=== PATIENT | female | born 2000 | race American Indian/Alaskan Native ===

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

== ENCOUNTER 2020-05-20 13:44 | Emergency (ER) | payer MEDICAID ==
[2020-05-20] MEDS ORDERED: dexAMETHasone 20 MG/5 ML VIAL IV ONE (16:51)
[2020-05-20] MEDS ORDERED: ALBUTEROL 2.5 MG/3 ML NEBU IH ONE ×2 (16:51→19:21)
[2020-05-20] MEDS ORDERED: MAGNESIUM SULFATE 2 GM/50 ML BAG IV ONE (16:51)
[2020-05-20] MEDS ORDERED: IPRATROPIUM 0.02% NEBU 2.5 ML IH ONE ×2 (16:51→19:21)
--- NOTE | 2020-05-20 16:56 | Emergency Department Report ---
ED Asthma HPI - General Chief Complaint: Dyspnea/Respdistress Stated Complaint: ALEX Time Seen by Provider: 05/20/20 16:51 Source: patient Mode of arrival: Wheelchair Limitations: No Limitations - History of Present Illness Initial Comments: Patient is a 19-year-old female presents emergency room complaints of an asthma exacerbation that began 3 days ago. She states that she ran out of her albuterol inhaler and has not been able to use it over the last week. She states that she has an occasional dry cough but denies any productive cough. She states that she has shortness of breath and wheezing and chest tightness. She denies any fever, vomiting, diarrhea, abdominal pain, vaginal bleeding. She denies any known sick contacts or recent travel. She is currently and under the care of an [employer]PECTING. No other past medical history except for asthma. No allergies to medications. - Related Data Previous Rx's Medication Instructions Recorded Last Taken Type ALBUTEROL Inhaler(NF) [VENTOLIN 2 puff IH TID #1 inha 03/24/18 Unknown Rx Inhaler(NF)] Nitrofurantoin [place]/M-Cryst 100 mg PO Q12HR #14 capsule 11/17/19 Unknown Rx [Macrobid CAP] metroNIDAZOLE [Flagyl] 500 mg PO Q12HR #14 tab 11/17/19 Unknown Rx Albuterol Sulfate [Proventil Hfa] 6.7 gm IH TID PRN #1 hfa.aer.ad 05/20/20 Unknown Rx Amoxicillin/Potassium Clav 1 each PO BID 10 Days #20 tablet 05/20/20 Unknown Rx [Augmentin 875-125 Tablet] Prednisone [predniSONE 10 mg 10 mg PO .TAPER #1 tab.ds.pk 05/20/20 Unknown Rx (6-Day Pack, 21 Tabs)] Allergies Allergy/AdvReac Type Severity Reaction Status Date / Time No Known Allergies Allergy Verified 03/24/18 13:35 ED Review of Systems ROS: Stated complaint: ALEX Other details as noted in HPI Comment: All other systems reviewed and negative ED Past Medical Hx - Past Medical History Previous Medical History?: Yes Hx Asthma: Yes Additional medical history: "learning disability" - Social History Smoking Status: Never Smoker Substance Use Type: None - Medications Home Medications: Home Medications Medication Instructions Recorded Confirmed Last Taken Type ALBUTEROL Inhaler(NF) [VENTOLIN 2 puff IH TID #1 inha 10/24/18 Unknown Rx Inhaler(NF)] Nitrofurantoin [place]/M-Cryst 100 mg PO Q12HR #14 capsule 11/17/19 Unknown Rx [Macrobid CAP] metroNIDAZOLE [Flagyl] 500 mg PO Q12HR #14 tab 11/17/19 Unknown Rx Albuterol Sulfate [Proventil Hfa] 6.7 gm IH TID PRN #1 hfa.aer.ad 05/20/20 Unknown Rx Amoxicillin/Potassium Clav 1 each PO BID 10 Days #20 tablet 05/20/20 Unknown Rx [Augmentin 875-125 Tablet] Prednisone [predniSONE 10 mg 10 mg PO .TAPER #1 tab.ds.pk 05/20/20 Unknown Rx (6-Day Pack, 21 Tabs)] ED Physical Exam - General Limitations: No Limitations General appearance: alert, in no apparent distress - Head Head exam: Present: atraumatic, normocephalic - Eye Eye exam: Present: normal appearance - ENT ENT exam: Present: mucous membranes moist - Respiratory Respiratory exam: Present: wheezes (bilaterally throughout), prolonged expiratory. Absent: respiratory distress, rales, rhonchi, stridor, chest wall tenderness, accessory muscle use, decreased breath sounds - Cardiovascular Cardiovascular Exam: Present: regular rate, normal rhythm, normal heart sounds. Absent: systolic murmur, diastolic murmur, rubs, gallop - Neurological Exam Neurological exam: Present: alert, oriented X3 - Psychiatric Psychiatric exam: Present: normal affect, normal mood - Skin Skin exam: Present: warm, dry, intact ED Course Vital Signs 05/20/20 05/20/20 05/20/20 13:52 19:33 20:43 Temperature 97.4 F L 97.8 F Pulse Rate 104 H 128 H Pulse Rate [ 135 H Bilateral Throughout] Respiratory 24 18 Rate Respiratory 20 Rate [Bilateral Throughout] Blood Pressure 105/73 Blood Pressure 108/64 [Left] O2 Sat by Pulse 96 95 Oximetry 05/20/20 23:03 Temperature Pulse Rate Pulse Rate [ Bilateral Throughout] Respiratory 16 Rate Respiratory Rate [Bilateral Throughout] Blood Pressure Blood Pressure [Left] O2 Sat by Pulse 98 Oximetry ED Medical Decision Making - Lab Data Result diagrams: 05/20/20 19:44 05/20/20 19:44 Lab Results 12/20/20 12/20/20 Range/Units 19:44 19:44 WBC 14.7 H (4.5-11.0) K/mm3 RBC 4.88 (3.65-5.03) M/mm3 Hgb 14.0 (10.1-14.3) gm/dl Hct 41.7 (30.3-42.9) % MCV 86 (79-97) fl MCH 29 (28-32) pg MCHC 34 (30-34) % RDW 15.5 H (13.2-15.2) % Plt Count 190 (140-440) K/mm3 Add Manual Diff Complete Total Counted 100 Seg Neutrophils % Biological Science Technician Seg Neuts % (Manual) 93.0 H (40.0-70.0) % Band Neutrophils % 1.0 % Lymphocytes % (Manual) 4.0 L (13.4-35.0) % Monocytes % (Manual) 1.0 (0.0-7.3) % Eosinophils % (Manual) 1.0 (0.0-4.3) % Nucleated RBC % Not Reportable Seg Neutrophils # Man 13.7 H (1.8-7.7) K/mm3 Band Neutrophils # 0.1 K/mm3 Lymphocytes # (Manual) 0.6 L (1.2-5.4) K/mm3 Abs React Lymphs (Man) 0.0 K/mm3 Monocytes # (Manual) 0.1 (0.0-0.8) K/mm3 Eosinophils # (Manual) 0.1 (0.0-0.4) K/mm3 Basophils # (Manual) 0.0 (0.0-0.1) K/mm3 Metamyelocytes # 0.0 K/mm3 Myelocytes # 0.0 K/mm3 Promyelocytes # 0.0 K/mm3 Blast Cells # 0.0 K/mm3 WBC Morphology Not Reportable Hypersegmented Neuts Not Reportable Hyposegmented Neuts Not Reportable Hypogranular Neuts Not Reportable Smudge Cells Not Reportable Toxic Granulation Not Reportable Toxic Vacuolation Not Reportable Dohle Bodies Not Reportable Pelger-Huet Anomaly Not Reportable Vangie Rods Not Reportable Platelet Estimate Consistent w auto Clumped Platelets Not Reportable Plt Clumps, EDTA Not Reportable Large Platelets Not Reportable Giant Platelets Not Reportable Platelet Satelliting Not Reportable Plt Morphology Comment Not Reportable RBC Morphology Not Reportable Dimorphic RBCs Not Reportable Polychromasia Not Reportable Hypochromasia Not Reportable Poikilocytosis Not Reportable Anisocytosis Not Reportable Microcytosis Not Reportable Macrocytosis Not Reportable Spherocytes Not Reportable Pappenheimer Bodies Not Reportable Sickle Cells Not Reportable Target Cells Not Reportable Tear Drop Cells Not Reportable Ovalocytes Rare Helmet Cells Not Reportable [place] Bodies Not Reportable [place] Rings Not Reportable Monalisa Cells Not Reportable Bite Cells Not Reportable Crenated Cell Not Reportable Elliptocytes Not Reportable Acanthocytes (Spur) Not Reportable Rouleaux Not Reportable Hemoglobin C Crystals Not Reportable Schistocytes Not Reportable Malaria parasites Not Reportable [place] Bodies Not Reportable Hem Pathologist Commnt No Sodium 137 (137-145) mmol/L Potassium 3.4 L (3.6-5.0) mmol/L Chloride 103.5 (98-107) mmol/L Carbon Dioxide 19 L (22-30) mmol/L Anion Gap 18 mmol/L BUN 5 L (7-17) mg/dL Creatinine 0.7 (0.6-1.2) mg/dL Estimated GFR > 60 ml/min BUN/Creatinine Ratio 7 % Glucose 127 H (65-100) mg/dL Calcium 9.2 (8.4-10.2) mg/dL Total Bilirubin 0.30 (0.1-1.2) mg/dL AST 13 (5-40) units/L ALT 10 (7-56) units/L Alkaline Phosphatase 68 (35-129) units/L Total Protein 7.1 (6.3-8.2) g/dL Albumin 4.0 (3.9-5) g/dL Albumin/Globulin Ratio 1.3 % - Radiology Data Radiology results: report reviewed Ordering Physician: SANTIAGO KIDD Date of Service: 05/20/20 Procedure(s): XR chest 1V ap Accession Number(s): [id number] cc: SANTIAGO KIDD Fluoro Time In Minutes: CHEST 1 VIEW 05/20/2020 7:28 PM INDICATION / CLINICAL INFORMATION: SOB, wheezing. COMPARISON: None available. FINDINGS: SUPPORT DEVICES: None. HEART / MEDIASTINUM: No significant abnormality. LUNGS / PLEURA: No significant pulmonary or pleural abnormality. No pneumothorax. ADDITIONAL FINDINGS: No significant additional findings. IMPRESSION: No acute cardiopulmonary abnormality. Signer Name: Clifton Castro MD Signed: 05/20/2020 8:30 PM Workstation Name: [id number] Transcribed By: SS Dictated By: CLIFTON CASTRO Electronically Authenticated By: CLIFTON CASTRO Signed Date/Time: 05/20/202029 DD/ 29 TD/TT: - Medical Decision Making Patient is a 19-year-old female presents emergency room complaints of an asthma exacerbation that began 3 days ago. She states that she ran out of her albuterol inhaler and has not been able to use it over the last week. She states that she has an occasional dry cough but denies any productive cough. She states that she has shortness of breath and wheezing and chest tightness. She denies any fever, vomiting, diarrhea, abdominal pain, vaginal bleeding. She denies any known sick contacts or recent travel. She is currently and under the care of an [employer]PERVISOR [employer]PECTING. No other past medical history except for asthma. No allergies to medications. Initial vitals with very mild tachycardia, after neb treatments her heart rate increased likely secondary to and albuterol. Labs with 14,000 white count, otherwise stable. Chest x-ray No acute cardiopulmonary abnormality. On exam she has bilateral expiratory wheezing throughout, no respiratory distress, no accessory muscle use, no rhonchi, no rales. Patient given continuous neb treatment, 1 L fluids, magnesium, dexamethasone and wheezing has improved, still mild expiratory wheezing on exam. Discussed patient and results with Dr. Shalom Gaston, ER attending who advised that heart rate is likely secondary to albuterol use and and the patient can be discharged home and to give patient prescriptions for bronchitis including antibiotics. Patient given prescription for Augmentin, prednisone, albuterol inhaler. Patient is presenting with the symptoms during COVID-19 pandemic, discussed COVID-19 with patient, discussed return precautions, discussed outpatient testing, discussed self quarantine. Advised patient Please use medication as prescribed. Please increase your fluid intake over the next several days. May take Tylenol as needed for fever or body aches. Follow-up with a primary care doctor for reexamination. follow up with your SUPERVISOR INSPECTING. Return to emergency room immediately for any new or worsening symptoms including but not limited to difficulty breathing, shortness of breath, severe chest pain, unable to tolerate by mouth intake, etc. Please self quarantine for 10 days from the onset of your symptoms. Please do not go out in public. If you are around others at home please wear a mask. If you need to cough or sneeze please do so in a napkin and immediately throw it away and immediately wash your hands. Wash your hands frequently. Wipe everything down. Recommend for you to get COVID-19 testing, may have this done at primary care doctor, health department, [facility] testing [place]. - Differential Diagnosis Asthma, reactive airway, URI, PNA, COVID-19, viral syndrome Critical care attestation.: If time is entered above; I have spent that time in minutes in the direct care of this critically ill patient, excluding procedure time. ED Disposition Clinical Impression: Bronchitis Asthma Qualifiers: Asthma severity: unspecified severity Asthma persistence: unspecified Asthma complication type: with acute exacerbation Qualified Code(s): J45.901 - Unspecified asthma with (acute) exacerbation Disposition: DC- TO HOME OR SELFCARE Is pt being admited?: No Does the pt Need Aspirin: No Condition: Stable Instructions: Acute Bronchitis, Pediatric, Asthma, Adult, Asthma (ED), Chronic Bronchitis (ED) Additional Instructions: Please use medication as prescribed. Please increase your fluid intake over the next several days. May take Tylenol as needed for fever or body aches. Follow-up with a primary care doctor for reexamination. follow up with your SUPERVISOR [employer]PECTING. Return to emergency room immediately for any new or worsening symptoms including but not limited to difficulty breathing, shortness of breath, severe chest pain, unable to tolerate by mouth intake, etc. Please self quarantine for 10 days from the onset of your symptoms. Please do not go out in public. If you are around others at home please wear a mask. If you need to cough or sneeze please do so in a napkin and immediately throw it away and immediately wash your hands. Wash your hands frequently. Wipe everything down. Recommend for you to get COVID-19 testing, may have this done at primary care doctor, health department, [facility] testing center. Prescriptions: Amoxicillin/Potassium Clav [Augmentin 875-125 Tablet] 1 each PO BID 10 Days #20 tablet Prednisone [predniSONE 10 mg (6-Day Pack, 21 Tabs)] 10 mg PO .TAPER #1 tab.ds.pk Albuterol Sulfate [Proventil Hfa] 6.7 gm IH TID PRN #1 hfa.aer.ad PRN Reason: Wheezing Referrals: PRIMARY CARE, [Primary Care Provider] - 2-3 Days SHYANN RICE MD [Staff Physician] - 2-3 Days [facility] [Provider Group] - 2-3 Days your, supervisor coremaker [Other] - 2-3 Days Time of Disposition: 22:23 Print Language: NOR[place] KORE[place]
[2020-05-20 19:35] VITALS: BP 108/64
[2020-05-20] MEDS ORDERED: SODIUM CHLORIDE 0.9% 1000 ML 1,000 ML IV ONE (19:36)
[2020-05-20 19:51] LABS: Hematocrit 41.7 % (30.3-42.9); Mean Corpuscular HGB Conc 34 % (30-34); Mean Corpuscular Volume 86 fl (79-97); Platelet Count 190 K/mm3 (140-440); Red Blood Count 4.88 M/mm3 (3.65-5.03); Red Cell Distribution Width 15.5 % (13.2-15.2)
[2020-05-20 20:13] LABS: Alanine Aminotransferase 10 units/L (7-56); Blood Urea Nitrogen 5 mg/dL (7-17); Calcium 9.2 mg/dL (8.4-10.2); Hemolysis Index 4
[2020-05-20 20:17] LABS: BUN/Creatinine Ratio 7
--- NOTE | 2020-05-20 20:35 | XRay Report ---
CHEST 1 VIEW 05/20/2020 7:28 PM INDICATION / CLINICAL INFORMATION: SOB, wheezing. COMPARISON: None available. FINDINGS: SUPPORT DEVICES: None. HEART / MEDIASTINUM: No significant abnormality. LUNGS / PLEURA: No significant pulmonary or pleural abnormality. No pneumothorax. ADDITIONAL FINDINGS: No significant additional findings. IMPRESSION: No acute cardiopulmonary abnormality. Signer Name: Randal Castro MD Signed: 05/20/2020 8:30 PM Workstation Name: [id number]
[2020-05-20 21:18] LABS: Band Neutrophils # (Manual) 0.1 K/mm3; Total Cells Counted 100
[2020-05-20 21:36] LABS: Ovalocytes Rare; Platelet Estimate Consistent w Auto
== END 2020-05-20 23:08 | disposition home or self-care (01) ==
LOC: ED 13:44
DX: J45.909 Unspecified asthma, uncomplicated (principal); Z79.2 Long term (current) use of antibiotics; Z79.899 Other long term (current) drug therapy
CPT/HCPCS: 36415; 71045; 80053; 85007; 85025; 94640; 96361; 96365; 96375; 99284; J1100; J3475; J7030; 94644

== ENCOUNTER 2020-08-24 06:41 | Inpatient (IN) | payer MEDICAID ==
[2020-08-24] MEDS: TERBUTALINE 1 MG/1 ML INJ SUB-Q SCH ×2 (07:44→08:45)
--- NOTE | 2020-08-24 07:46 | History and Physical Report ---
History of Present Illness Date of examination: 08/24/20 Chief complaint: Abdominal pain starting @ 0530 after voiding History of present illness: 19y/o EDC 10/01/2020 per patient SAB 9wks, 2019 pt reports regular care with Dr. Solorio in [place], last visit 08/10 She denies complications with before this morning when she started having abdominal pain after voiding. Past History Past Medical History: asthma, other ("learning disability" ) Past Surgical History: no surgical history BOX STACKER History: chlamydia, trichomonas Family/Genetic History: none Social history: single, lives with family. denies: smoking, alcohol abuse, prescription drug abuse, IV drug use - Obstetrical History Expected Date of Delivery: 10/01/20 Actual Gestation: 34 Week(s) 4 Day(s) : 2 Para: 0 Hx # Term Pregnancies: 0 Number of Pregnancies: 0 Spontaneous Abortions: 1 Induced : 0 Number of Living Children: 0 Medications and Allergies Allergies Allergy/AdvReac Type Severity Reaction Status Date / Time No Known Allergies Allergy Verified 03/24/18 13:35 Home Medications Medication Instructions Recorded Confirmed Last Taken Type ALBUTEROL Inhaler(NF) [VENTOLIN 2 puff IH TID #1 inha 03/24/18 Unknown Rx Inhaler(NF)] Nitrofurantoin Cambria/M-Cryst 100 mg PO Q12HR #14 capsule 11/17/19 Unknown Rx [Macrobid CAP] metroNIDAZOLE [Flagyl] 500 mg PO Q12HR #14 tab 11/17/19 Unknown Rx Albuterol Sulfate [Proventil Hfa] 6.7 gm IH TID PRN #1 hfa.aer.ad 05/20/20 Unknown Rx Amoxicillin/Potassium Clav 1 each PO BID 10 Days #20 tablet 05/20/20 Unknown Rx [Augmentin 875-125 Tablet] Prednisone [predniSONE 10 mg 10 mg PO .TAPER #1 tab.ds.pk 05/20/20 Unknown Rx (6-Day Pack, 21 Tabs)] Active Meds: Active Medications Acetaminophen (Acetaminophen 325 Mg Tab) 650 mg PO Q4H PRN PRN Reason: Pain MILD(1-3)/Fever >100.5/PARRA Al Hydrox/Mg Hydrox/Simethicone (Alum-Mag Hydroxide-Simethicone [id number]/5ml Oral Liqd 30 Ml) 30 ml PO Q6H PRN PRN Reason: Indigestion Betamethasone Acet/Betameth SodPhos (Betamet Acet/Betamet Na Ph 6 Mg/Ml Inj 5 Ml Mdv) 12 mg IM Q24HR GALE Stop: 08/25/20 10:01 Docusate Sodium (Docusate Sodium 100 Mg Cap) 100 mg PO Q12H PRN PRN Reason: Constipation Lactated Ringer's (Lactated Ringers) 1,000 mls @ 999 mls/hr IV BOLUS ONE Stop: 08/24/20 09:00 Last Admin: 08/24/20 07:30 Dose: 999 mls/hr Documented by: Lactated Ringer's (Lactated Ringers) 1,000 mls @ 125 mls/hr IV DIRECT GALE Ampicillin Sodium (Ampicillin/Ns 2 Gm/100 Ml) 2 gm in 100 mls @ 100 mls/hr IV ONCE ONE; Protocol Stop: 08/24/20 08:37 Ampicillin Sodium (Ampicillin/Ns 1 Gm/50 Ml) 1 gm in 50 mls @ 100 mls/hr IV Q4H GALE; Protocol Multivitamins/Iron/Calcium ( [id number] Fumarate-Folic Acid Vit Tab) 1 each PO QDAY GALE Ondansetron HCl (Ondansetron 4 Mg/2 Ml Inj) 4 mg IV Q6H PRN PRN Reason: Nausea And Vomiting Terbutaline Sulfate (Terbutaline 1 Mg/1 Ml Inj) 0.25 mg SUB-Q ONCE GALE Stop: 08/24/20 21:00 Review of Systems All systems: negative - Vital Signs Vital signs: Vital Signs Pulse BP 91 H 119/80 08/24/20 06:58 08/24/20 06:58 Temp Pulse Resp BP Pulse Ox 97.8 F 90 20 119/80 98 08/24/20 07:30 08/24/20 07:39 08/24/20 07:30 08/24/20 06:58 08/24/20 07:39 - Physical Exam Breasts: Positive: normal Cardiovascular: Regular rate Lungs: Positive: Normal air movement Abdomen: Positive: normal appearance, soft Genitourinary (Female): Positive: normal external genitalia, normal perenium Vulva: both: normal Vagina: Positive: normal moisture Extremities: Positive: normal Deep Tendon Reflex Grade: Normal +2 - Obstetrical FHR: category 1 Uterine Contraction Monitor Mode: External Cervical Dilatation: 4 (cephalic, IBOW, bloody show) Cervical Effacement Percentage: 80 station: -1 Uterine Contraction Frequency (min): 1-2 Uterine Contraction Duration: 60 Uterine Contraction Pattern: Regular Uterine Tone Measurement Phase: Contraction Uterine Contraction Intensity: Moderate Results All other labs normal. Assessment and Plan 19y/o @ 34+4 weeks presented to triage via EMS for abdominal pain that started approx 2 hours ago. She denies recent intercourse, drug or alcohol use. She states her Doctor is "Dr. Solorio in [place]" and her last visit was 08/10/2020. Pt denies any complications with , she denies seeing perinatology at any time during her . - Patient Problems (1) 34 weeks gestation of Current Visit: Yes Status: Acute Plan to address problem: request records from primary MD. labs ordered will treat with abx for unknown GBS (2) labor in third trimester Current Visit: Yes Status: Acute Qualifiers: Fetus number: single or unspecified fetus Plan to address problem: Magnesium sulfate 2gm/hr after 4gm bolus steroids for lung maturity ABX for unknown GBS NICU consult. (3) Mild intellectual disabilities Current Visit: Yes Status: Acute Plan to address problem: per the FOC's mother, patient's mother is her legal guardian. Pt states her mother is MAREN FALK. Advised that her mother can come to hospital to assist patient. pt called her mother on speaker phone nd requested she come to the hospital. Pt's mother states she will come up after she "finish getting the house ready for the baby". Case management consult ordered.
[2020-08-24] MEDS ORDERED: ONDANSETRON 4 MG/2 ML INJ IV PRN (08:00)
[2020-08-24] MEDS ORDERED: LACTATED RINGERS 1,000 ML IV ONE (08:00)
[2020-08-24] MEDS ORDERED: MAGNESIUM SULFATE 4 GM/100 ML BAG IV SCH (08:00)
[2020-08-24] MEDS ORDERED: BETAMET ACET/BETAMET NA PH 6 MG/ML INJ 5 ML MDV IM SCH (08:00)
[2020-08-24] MEDS ORDERED: AMPICILLIN/NS 2 GM/100 ML 2 GM/100 ML BAG IV SCH (08:00)
[2020-08-24] MEDS ORDERED: ACETAMINOPHEN 325 MG TAB PO PRN (08:00)
[2020-08-24] MEDS ORDERED: MAGNESIUM SULFATE 40GM/1000ML 40 GM/1,000 ML BAG IV SCH (08:00)
[2020-08-24] MEDS ORDERED: ALUM-MAG HYDROXIDE-SIMETHICONE 200-200-20MG/5ML ORAL LIQD 30 ML PO PRN (08:00)
[2020-08-24 08:36] LABS: Bilirubin,Urine Negative (Negative); Blood,Urine Small (Negative); Color,Urine Yellow (Yellow)
[2020-08-24 08:37] LABS: Protein,Urine <15 mg/dL mg/dL (Negative); Urobilinogen,Urine < 2.0 mg/dL (<2.0)
[2020-08-24] MEDS ORDERED: DOCUSATE SODIUM 100 MG CAP PO PRN (09:00)
[2020-08-24] MEDS ORDERED: PRENATAL VIT27-FE FUMARATE-FOLIC ACID VIT TAB PO SCH (10:00)
[2020-08-24] MEDS: LACTATED RINGERS 1,000 ML IV SCH ×2 (12:36→20:54)
[2020-08-24] MEDS: AMPICILLIN/NS 1 GM/50 ML 1 GM/50 ML BAG IV SCH ×3 (12:37→20:52)
[2020-08-24 14:35] LABS: Basophils # (Auto) 0.1 K/mm3 (0.0-0.1); Basophils % (Auto) 0.5 % (0.0-1.8); Eosinophils # (Auto) 0.2 K/mm3 (0.0-0.4); Eosinophils % (Auto) 1.8 % (0.0-4.3); Hematocrit 38.5 % (30.3-42.9); Hemoglobin 12.9 gm/dl (10.1-14.3); Lymphocytes # (Auto) 1.9 K/mm3 (1.2-5.4); Lymphocytes % (Auto) 15.2 % (13.4-35.0); Mean Corpuscular HGB Conc 34 % (30-34); Mean Corpuscular Volume 83 fl (79-97); Monocytes # (Auto) 0.8 K/mm3 (0.0-0.8); Monocytes % (Auto) 6.3 % (0.0-7.3); Platelet Count 143 K/mm3 (140-440); Red Blood Count 4.64 M/mm3 (3.65-5.03)
[2020-08-24 14:52] LABS: Amphetamine Screen,Urine Negative; Benzodiazepines Screen,Urine Negative; Cannabinoid Screen,Urine Negative; Cocaine Screen,Urine Negative; Methadone Screen,Urine Negative; Opiate Screen,Urine Negative
[2020-08-24 15:33] LABS: Hepatitis C Virus Antibody Nonreactive (NonReactive)
--- NOTE | 2020-08-24 15:46 | Consultation ---
Consult Note - Parent Education I met with parent(s) and discussed the following:: Need for NICU admission, Temp erature regulation, Slow feeding advancement and monitoring of tolerance. NG/OG feeds, Need to monitor for jaundice Parent(s) demonstrated understanding of all the information:: No Additional Comment: MOther and FOB sleeping upon entrance to room. Mother remained sleeping while speaking with FOB. Reviewed need for admission, feeding, glucose, respiratory, and prognosis. Advised FOB to call when mother is awake for more in depth consult if needed. Assessment and Plan - Assessment Gestation:: 34 (09/05) Baby's gender: Male Additional Comment: 19yo with EDC 10/01/20 arrived with abdominal pain. Rubella pending, HIV negative, Hep B negative Syphilis non reactive, GBS unknown. Mild intellectual disability per H&P. Receiving antbx, steroids, and magnesium. - Plan Plan: Will attend delivery Please call NICU with questions
--- NOTE | 2020-08-24 16:48 | Progress Note ---
Assessment and Plan patient resting on right side in [facility] control, she c/o a PARRA, contractions and back pain. She would like some medication for pain. Mag continues @ 2gm/hr, will have mag level redrawn as previous result does not c/w current therapy. Dr. Cruz consulted, will d/c mag at this time. patient and her mother agreeable to plan of care. Pt may have epidural PRN. Anticipate . NICU aware. - Patient Problems (1) 34 weeks gestation of Current Visit: Yes Status: Acute (2) labor in third trimester Current Visit: Yes Status: Acute Qualifiers: Fetus number: single or unspecified fetus (3) Mild intellectual disabilities Current Visit: Yes Status: Acute Subjective - Subjective Date of service: 08/24/20 Principal diagnosis: IUP @ 34+4, labor Interval history: 19y/o EDC 10/01/2020 per patient SAB 9wks, 2019 pt reports regular care with Dr. Solorio in [place], last visit 08/10 She denies complications with before this morning when she started having abdominal pain after voiding. Patient reports: new complaints (PARRA, back pain and contractions), vaginal bleeding, movement normal, contractions, no loss of fluid Objective - Vital Signs Vital Signs: Vital Signs - 12hr 08/24/20 08/24/20 08/24/20 06:58 06:59 07:04 Temperature Pulse Rate 91 H 104 H 104 H Respiratory Rate Blood Pressure 119/80 O2 Sat by Pulse 98 97 Oximetry 08/24/20 08/24/20 08/24/20 07:09 07:14 07:19 Temperature Pulse Rate 102 H 109 H 116 H Respiratory Rate Blood Pressure O2 Sat by Pulse 97 96 98 Oximetry 08/24/20 08/24/20 08/24/20 07:24 07:29 07:30 Temperature 97.8 F Pulse Rate 111 H 87 Respiratory 20 Rate Blood Pressure O2 Sat by Pulse 98 98 Oximetry 08/24/20 08/24/20 08/24/20 07:34 07:39 07:44 Temperature Pulse Rate 94 H 90 102 H Respiratory Rate Blood Pressure O2 Sat by Pulse 98 98 99 Oximetry 08/24/20 08/24/20 08/24/20 07:49 07:54 07:59 Temperature Pulse Rate 103 H 105 H 100 H Respiratory Rate Blood Pressure O2 Sat by Pulse 98 98 98 Oximetry 08/24/20 08/24/20 08/24/20 08:09 08:10 08:15 Temperature Pulse Rate 101 H 120 H 117 H Respiratory Rate Blood Pressure 115/70 O2 Sat by Pulse 99 99 Oximetry 08/24/20 08/24/20 08/24/20 08:20 08:25 08:30 Temperature Pulse Rate 113 H 107 H 108 H Respiratory Rate Blood Pressure O2 Sat by Pulse 98 99 99 Oximetry 08/24/20 08/24/20 08/24/20 08:35 08:40 08:45 Temperature Pulse Rate 117 H 117 H 114 H Respiratory Rate Blood Pressure O2 Sat by Pulse 99 99 99 Oximetry 08/24/20 08/24/20 08/24/20 08:50 08:55 09:00 Temperature Pulse Rate 113 H 122 H 124 H Respiratory Rate Blood Pressure O2 Sat by Pulse 99 98 98 Oximetry 08/24/20 08/24/20 08/24/20 09:05 09:10 09:15 Temperature Pulse Rate 129 H 129 H 126 H Respiratory Rate Blood Pressure O2 Sat by Pulse 97 97 98 Oximetry 08/24/20 08/24/20 08/24/20 09:20 09:25 09:30 Temperature Pulse Rate 127 H 124 H 128 H Respiratory Rate Blood Pressure O2 Sat by Pulse 97 97 97 Oximetry 08/24/20 08/24/20 08/24/20 09:31 09:35 09:40 Temperature Pulse Rate 123 H 127 H 126 H Respiratory Rate Blood Pressure O2 Sat by Pulse 93 97 98 Oximetry 08/24/20 08/24/20 08/24/20 09:45 09:50 09:55 Temperature Pulse Rate 133 H 124 H 117 H Respiratory Rate Blood Pressure O2 Sat by Pulse 96 98 98 Oximetry 08/24/20 08/24/20 08/24/20 10:00 10:05 10:10 Temperature Pulse Rate 117 H 121 H 114 H Respiratory Rate Blood Pressure O2 Sat by Pulse 98 98 97 Oximetry 08/24/20 08/24/20 08/24/20 10:15 10:20 10:25 Temperature Pulse Rate 111 H 118 H 112 H Respiratory Rate Blood Pressure O2 Sat by Pulse 97 99 98 Oximetry 08/24/20 08/24/20 08/24/20 10:30 10:35 10:40 Temperature Pulse Rate 110 H 114 H 116 H Respiratory Rate Blood Pressure O2 Sat by Pulse 98 98 98 Oximetry 08/24/20 08/24/20 08/24/20 10:45 10:50 10:55 Temperature Pulse Rate 122 H 111 H 109 H Respiratory Rate Blood Pressure O2 Sat by Pulse 100 99 98 Oximetry 08/24/20 08/24/20 08/24/20 11:00 11:05 11:10 Temperature Pulse Rate 111 H 105 H 113 H Respiratory Rate Blood Pressure O2 Sat by Pulse 99 98 98 Oximetry 08/24/20 08/24/20 08/24/20 11:15 11:20 11:25 Temperature Pulse Rate 107 H 109 H 105 H Respiratory Rate Blood Pressure O2 Sat by Pulse 98 98 98 Oximetry 08/24/20 08/24/20 08/24/20 11:30 11:35 11:40 Temperature Pulse Rate 106 H 106 H 112 H Respiratory Rate Blood Pressure O2 Sat by Pulse 98 98 98 Oximetry 08/24/20 08/24/20 08/24/20 11:45 11:50 11:55 Temperature Pulse Rate 105 H 102 H 103 H Respiratory Rate Blood Pressure O2 Sat by Pulse 98 98 98 Oximetry 08/24/20 08/24/20 08/24/20 12:00 12:05 12:10 Temperature Pulse Rate 106 H 108 H 107 H Respiratory Rate Blood Pressure O2 Sat by Pulse 98 98 98 Oximetry 08/24/20 08/24/20 08/24/20 12:15 12:20 12:25 Temperature Pulse Rate 106 H 108 H 116 H Respiratory Rate Blood Pressure O2 Sat by Pulse 98 98 99 Oximetry 08/24/20 08/24/20 08/24/20 12:30 12:35 12:40 Temperature Pulse Rate 110 H 111 H 105 H Respiratory Rate Blood Pressure O2 Sat by Pulse 99 99 99 Oximetry 08/24/20 08/24/20 08/24/20 12:45 12:50 12:55 Temperature Pulse Rate 110 H 111 H 117 H Respiratory Rate Blood Pressure O2 Sat by Pulse 99 99 98 Oximetry 08/24/20 08/24/20 08/24/20 13:00 13:05 13:10 Temperature Pulse Rate 109 H 120 H 110 H Respiratory Rate Blood Pressure O2 Sat by Pulse 98 99 99 Oximetry 08/24/20 08/24/20 08/24/20 13:15 13:20 13:25 Temperature Pulse Rate 116 H 114 H 112 H Respiratory Rate Blood Pressure O2 Sat by Pulse 99 99 99 Oximetry 08/24/20 08/24/20 08/24/20 13:30 13:35 13:40 Temperature Pulse Rate 112 H 113 H 115 H Respiratory Rate Blood Pressure O2 Sat by Pulse 99 99 99 Oximetry 08/24/20 08/24/20 08/24/20 13:45 13:50 13:55 Temperature Pulse Rate 117 H 113 H 112 H Respiratory Rate Blood Pressure O2 Sat by Pulse 98 98 99 Oximetry 08/24/20 08/24/20 08/24/20 14:00 14:05 14:10 Temperature Pulse Rate 115 H 120 H 119 H Respiratory Rate Blood Pressure O2 Sat by Pulse 98 99 98 Oximetry 08/24/20 08/24/20 08/24/20 14:15 14:20 14:25 Temperature Pulse Rate 111 H 114 H 124 H Respiratory Rate Blood Pressure O2 Sat by Pulse 99 99 97 Oximetry 08/24/20 08/24/20 08/24/20 14:30 14:35 14:40 Temperature Pulse Rate 111 H 109 H 116 H Respiratory Rate Blood Pressure O2 Sat by Pulse 98 98 98 Oximetry 08/24/20 08/24/20 08/24/20 14:45 14:50 14:55 Temperature Pulse Rate 119 H 106 H 106 H Respiratory Rate Blood Pressure O2 Sat by Pulse 99 98 98 Oximetry 08/24/20 08/24/20 08/24/20 15:00 15:05 15:10 Temperature Pulse Rate 104 H 105 H 109 H Respiratory Rate Blood Pressure O2 Sat by Pulse 99 98 99 Oximetry 08/24/20 08/24/20 08/24/20 15:15 15:20 15:25 Temperature Pulse Rate 111 H 111 H 112 H Respiratory Rate Blood Pressure O2 Sat by Pulse 98 98 98 Oximetry 08/24/20 08/24/20 08/24/20 15:30 15:35 15:40 Temperature Pulse Rate 112 H 114 H 118 H Respiratory Rate Blood Pressure O2 Sat by Pulse 98 98 99 Oximetry 08/24/20 08/24/20 08/24/20 15:45 15:50 15:55 Temperature Pulse Rate 115 H 115 H 118 H Respiratory Rate Blood Pressure O2 Sat by Pulse 99 98 99 Oximetry 08/24/20 08/24/20 08/24/20 16:00 16:05 16:10 Temperature Pulse Rate 119 H 117 H 116 H Respiratory Rate Blood Pressure O2 Sat by Pulse 99 99 98 Oximetry 08/24/20 08/24/20 08/24/20 16:15 16:20 16:25 Temperature Pulse Rate 141 H 121 H 115 H Respiratory Rate Blood Pressure O2 Sat by Pulse 97 98 98 Oximetry 08/24/20 08/24/20 08/24/20 16:30 16:35 16:40 Temperature Pulse Rate 114 H 116 H 119 H Respiratory Rate Blood Pressure O2 Sat by Pulse 99 99 100 Oximetry - Exam Breasts: normal Cardiovascular: Regular rate Lungs: Clear to auscultation, Normal air movement Abdomen: Present: normal appearance, soft Vulva: both: normal Uterus: Present: normal, fundal height above umbilicus FHR: auscultation normal, category 1 Uterine Contraction Monitor Mode: External Cervical Dilatation: 6.5 Cervical Effacement Percentage: 80 station: 0 Uterine Contraction Frequency (min): 3-8 Uterine Contraction Duration: 60 Uterine Contraction Pattern: Regular Uterine Tone Measurement Phase: Contraction Uterine Contraction Intensity: Moderate Extremities: normal Deep Tendon Reflex Grade: Normal +2 - Labs Labs: Abnormal Labs 08/24/20 08/24/20 07:00 14:27 WBC 12.6 H RDW 13.0 L Seg Neutrophils % 76.2 H Seg Neutrophils # 9.6 H Urine Blood Small A Urine WBC (Auto) 39.0 H Laboratory Results - last 24 hr 08/24/20 08/24/20 08/24/20 07:00 14:27 14:27 WBC 12.6 H RBC 4.64 Hgb 12.9 Hct 38.5 MCV 83 MCH 28 MCHC 34 RDW 13.0 L Plt Count 143 Lymph % (Auto) 15.2 [place] % (Auto) 6.3 Eos % (Auto) 1.8 Baso % (Auto) 0.5 Lymph # (Auto) 1.9 [place] # (Auto) 0.8 Eos # (Auto) 0.2 Baso # (Auto) 0.1 Seg Neutrophils % 76.2 H Seg Neutrophils # 9.6 H Magnesium Urine Color Yellow Urine Turbidity Clear Urine pH 7.0 Ur Specific [place] 1.011 Urine Protein <15 mg/dl Urine Glucose (UA) Negative Urine Ketones Negative Urine Blood Small A Urine Nitrite Negative Urine Bilirubin Negative Urine Urobilinogen < 2.0 Ur Leukocyte Esterase Small Urine WBC (Auto) 39.0 H Urine RBC (Auto) 2.0 U Epithel Cells (Auto) 1.0 Urine Opiates Screen Urine Methadone Screen Ur Barbiturates Screen Ur Phencyclidine Scrn Ur Amphetamines Screen U Benzodiazepines Scrn Urine Cocaine Screen U Marijuana (THC) Screen Drugs of Abuse Note Syphilis IgG Antibody Coronavirus (PCR) Hep Bs Antigen Hepatitis C Antibody Nonreactive HIV 1&2 Antibody Rapid HIV P24 Antigen Rubella IgG Antibody Immune Blood Type Antibody Screen 08/24/20 08/24/20 08/24/20 14:27 14:27 14:27 WBC RBC Hgb Hct MCV MCH MCHC RDW Plt Count Lymph % (Auto) [place] % (Auto) Eos % (Auto) Baso % (Auto) Lymph # (Auto) [place] # (Auto) Eos # (Auto) Baso # (Auto) Seg Neutrophils % Seg Neutrophils # Magnesium Urine Color Urine Turbidity Urine pH Ur Specific [place] Urine Protein Urine Glucose (UA) Urine Ketones Urine Blood Urine Nitrite Urine Bilirubin Urine Urobilinogen Ur Leukocyte Esterase Urine WBC (Auto) Urine RBC (Auto) U Epithel Cells (Auto) Urine Opiates Screen Urine Methadone Screen Ur Barbiturates Screen Ur Phencyclidine Scrn Ur Amphetamines Screen U Benzodiazepines Scrn Urine Cocaine Screen U Marijuana (THC) Screen Drugs of Abuse Note Syphilis IgG Antibody Nonreactive Coronavirus (PCR) Hep Bs Antigen Non-reactive Hepatitis C Antibody HIV 1&2 Antibody Rapid Non react HIV P24 Antigen Non react Rubella IgG Antibody Blood Type Antibody Screen 08/24/20 08/24/20 08/24/20 14:27 14:40 Unknown WBC RBC Hgb Hct MCV MCH MCHC RDW Plt Count Lymph % (Auto) [place] % (Auto) Eos % (Auto) Baso % (Auto) Lymph # (Auto) [place] # (Auto) Eos # (Auto) Baso # (Auto) Seg Neutrophils % Seg Neutrophils # Magnesium 2.10 Urine Color Urine Turbidity Urine pH Ur Specific [place] Urine Protein Urine Glucose (UA) Urine Ketones Urine Blood Urine Nitrite Urine Bilirubin Urine Urobilinogen Ur Leukocyte Esterase Urine WBC (Auto) Urine RBC (Auto) U Epithel Cells (Auto) Urine Opiates Screen Urine Methadone Screen Ur Barbiturates Screen Ur Phencyclidine Scrn Ur Amphetamines Screen U Benzodiazepines Scrn Urine Cocaine Screen U Marijuana (THC) Screen Drugs of Abuse Note Syphilis IgG Antibody Coronavirus (PCR) Negative Hep Bs Antigen Hepatitis C Antibody HIV 1&2 Antibody Rapid HIV P24 Antigen Rubella IgG Antibody Blood Type B POSITIVE Antibody Screen Negative 08/24/20 Unknown WBC RBC Hgb Hct MCV MCH MCHC RDW Plt Count Lymph % (Auto) [place] % (Auto) Eos % (Auto) Baso % (Auto) Lymph # (Auto) [place] # (Auto) Eos # (Auto) Baso # (Auto) Seg Neutrophils % Seg Neutrophils # Magnesium Urine Color Urine Turbidity Urine pH Ur Specific [place] Urine Protein Urine Glucose (UA) Urine Ketones Urine Blood Urine Nitrite Urine Bilirubin Urine Urobilinogen Ur Leukocyte Esterase Urine WBC (Auto) Urine RBC (Auto) U Epithel Cells (Auto) Urine Opiates Screen Negative Urine Methadone Screen Negative Ur Barbiturates Screen Negative Ur Phencyclidine Scrn Negative Ur Amphetamines Screen Negative U Benzodiazepines Scrn Negative Urine Cocaine Screen Negative U Marijuana (THC) Screen Negative Drugs of Abuse Note Disclamer Syphilis IgG Antibody Coronavirus (PCR) Hep Bs Antigen Hepatitis C Antibody HIV 1&2 Antibody Rapid HIV P24 Antigen Rubella IgG Antibody Blood Type Antibody Screen
[2020-08-24] MEDS ORDERED: OXYTOCIN DRIP 30,000 MILLIUNITS/500 ML BAG IV ONE (18:22)
[2020-08-24] MEDS ORDERED: ePHEDrine SULFATE 50 MG/1 ML INJ ONE (19:31)
[2020-08-24] MEDS ORDERED: ePHEDrine SULFATE 50 MG/1 ML INJ IV PRN (20:46)
[2020-08-24] MEDS ORDERED: NALOXONE 2 MG/2 ML INJ IV PRN (20:46)
--- NOTE | 2020-08-24 20:51 | Progress Note ---
Assessment and Plan pt comfortable s/p epidural, ctx seem to have slowed down. SVE 7/80/0; BBOW - AROM w/ SVE. clear fluid. Will start pitocin as needed for regualr ctx. Ampicillin for unknown GBS continues x 4. records requested from Dr. Larry Solorio this evening after the office closed. Will have to wait until Thursday to get records. - Patient Problems (1) 34 weeks gestation of Current Visit: Yes Status: Acute (2) labor in third trimester Current Visit: Yes Status: Acute Qualifiers: Fetus number: single or unspecified fetus (3) Mild intellectual disabilities Current Visit: Yes Status: Acute Subjective - Subjective Date of service: 08/24/20 Principal diagnosis: IUP @ 34+4, labor Interval history: 19y/o EDC 10/01/2020 per patient SAB 2019 pt reports regular care with Dr. Solorio in [place], last visit 08/10 She denies complications with before this morning when she started having abdominal pain after voiding. Patient reports: no new complaints (pt comfortable s/p epidural) Objective - Vital Signs Vital Signs: Vital Signs - 12hr 08/24/20 08/24/20 08/24/20 08:50 08:55 09:00 Temperature Pulse Rate 113 H 122 H 124 H Respiratory Rate Blood Pressure O2 Sat by Pulse 99 98 98 Oximetry 08/24/20 08/24/20 08/24/20 09:05 09:10 09:15 Temperature Pulse Rate 129 H 129 H 126 H Respiratory Rate Blood Pressure O2 Sat by Pulse 97 97 98 Oximetry 08/24/20 08/24/20 08/24/20 09:20 09:25 09:30 Temperature Pulse Rate 127 H 124 H 128 H Respiratory Rate Blood Pressure O2 Sat by Pulse 97 97 97 Oximetry 08/24/20 08/24/20 08/24/20 09:31 09:35 09:40 Temperature Pulse Rate 123 H 127 H 126 H Respiratory Rate Blood Pressure O2 Sat by Pulse 93 97 98 Oximetry 08/24/20 08/24/20 08/24/20 09:45 09:50 09:55 Temperature Pulse Rate 133 H 124 H 117 H Respiratory Rate Blood Pressure O2 Sat by Pulse 96 98 98 Oximetry 08/24/20 08/24/20 08/24/20 10:00 10:05 10:10 Temperature Pulse Rate 117 H 121 H 114 H Respiratory Rate Blood Pressure O2 Sat by Pulse 98 98 97 Oximetry 08/24/20 08/24/20 08/24/20 10:15 10:20 10:25 Temperature Pulse Rate 111 H 118 H 112 H Respiratory Rate Blood Pressure O2 Sat by Pulse 97 99 98 Oximetry 08/24/20 08/24/20 08/24/20 10:30 10:35 10:40 Temperature Pulse Rate 110 H 114 H 116 H Respiratory Rate Blood Pressure O2 Sat by Pulse 98 98 98 Oximetry 08/24/20 08/24/20 08/24/20 10:45 10:50 10:55 Temperature Pulse Rate 122 H 111 H 109 H Respiratory Rate Blood Pressure O2 Sat by Pulse 100 99 98 Oximetry 08/24/20 08/24/20 08/24/20 11:00 11:05 11:10 Temperature Pulse Rate 111 H 105 H 113 H Respiratory Rate Blood Pressure O2 Sat by Pulse 99 98 98 Oximetry 08/24/20 08/24/20 08/24/20 11:15 11:20 11:25 Temperature Pulse Rate 107 H 109 H 105 H Respiratory Rate Blood Pressure O2 Sat by Pulse 98 98 98 Oximetry 08/24/20 08/24/20 08/24/20 11:30 11:35 11:40 Temperature Pulse Rate 106 H 106 H 112 H Respiratory Rate Blood Pressure O2 Sat by Pulse 98 98 98 Oximetry 08/24/20 08/24/20 08/24/20 11:45 11:50 11:55 Temperature Pulse Rate 105 H 102 H 103 H Respiratory Rate Blood Pressure O2 Sat by Pulse 98 98 98 Oximetry 08/24/20 08/24/20 08/24/20 12:00 12:05 12:10 Temperature Pulse Rate 106 H 108 H 107 H Respiratory Rate Blood Pressure O2 Sat by Pulse 98 98 98 Oximetry 08/24/20 08/24/20 08/24/20 12:15 12:20 12:25 Temperature Pulse Rate 106 H 108 H 116 H Respiratory Rate Blood Pressure O2 Sat by Pulse 98 98 99 Oximetry 08/24/20 08/24/20 08/24/20 12:30 12:35 12:40 Temperature Pulse Rate 110 H 111 H 105 H Respiratory Rate Blood Pressure O2 Sat by Pulse 99 99 99 Oximetry 08/24/20 08/24/20 08/24/20 12:45 12:50 12:55 Temperature Pulse Rate 110 H 111 H 117 H Respiratory Rate Blood Pressure O2 Sat by Pulse 99 99 98 Oximetry 08/24/20 08/24/20 08/24/20 13:00 13:05 13:10 Temperature Pulse Rate 109 H 120 H 110 H Respiratory Rate Blood Pressure O2 Sat by Pulse 98 99 99 Oximetry 08/24/20 08/24/20 08/24/20 13:15 13:20 13:25 Temperature Pulse Rate 116 H 114 H 112 H Respiratory Rate Blood Pressure O2 Sat by Pulse 99 99 99 Oximetry 08/24/20 08/24/20 08/24/20 13:30 13:35 13:40 Temperature Pulse Rate 112 H 113 H 115 H Respiratory Rate Blood Pressure O2 Sat by Pulse 99 99 99 Oximetry 08/24/20 08/24/20 08/24/20 13:45 13:50 13:55 Temperature Pulse Rate 117 H 113 H 112 H Respiratory Rate Blood Pressure O2 Sat by Pulse 98 98 99 Oximetry 08/24/20 08/24/20 08/24/20 14:00 14:05 14:10 Temperature Pulse Rate 115 H 120 H 119 H Respiratory Rate Blood Pressure O2 Sat by Pulse 98 99 98 Oximetry 08/24/20 08/24/20 08/24/20 14:15 14:20 14:25 Temperature Pulse Rate 111 H 114 H 124 H Respiratory Rate Blood Pressure O2 Sat by Pulse 99 99 97 Oximetry 08/24/20 08/24/20 08/24/20 14:30 14:35 14:40 Temperature Pulse Rate 111 H 109 H 116 H Respiratory Rate Blood Pressure O2 Sat by Pulse 98 98 98 Oximetry 08/24/20 08/24/20 08/24/20 14:45 14:50 14:55 Temperature Pulse Rate 119 H 106 H 106 H Respiratory Rate Blood Pressure O2 Sat by Pulse 99 98 98 Oximetry 08/24/20 08/24/20 08/24/20 15:00 15:05 15:10 Temperature Pulse Rate 104 H 105 H 109 H Respiratory Rate Blood Pressure O2 Sat by Pulse 99 98 99 Oximetry 08/24/20 08/24/20 08/24/20 15:15 15:20 15:25 Temperature Pulse Rate 111 H 111 H 112 H Respiratory Rate Blood Pressure O2 Sat by Pulse 98 98 98 Oximetry 08/24/20 08/24/20 08/24/20 15:30 15:35 15:40 Temperature Pulse Rate 112 H 114 H 118 H Respiratory Rate Blood Pressure O2 Sat by Pulse 98 98 99 Oximetry 08/24/20 08/24/20 08/24/20 15:45 15:50 15:55 Temperature Pulse Rate 115 H 115 H 118 H Respiratory Rate Blood Pressure O2 Sat by Pulse 99 98 99 Oximetry 08/24/20 08/24/20 08/24/20 16:00 16:05 16:10 Temperature Pulse Rate 119 H 117 H 116 H Respiratory Rate Blood Pressure O2 Sat by Pulse 99 99 98 Oximetry 08/24/20 08/24/20 08/24/20 16:15 16:20 16:25 Temperature Pulse Rate 141 H 121 H 115 H Respiratory Rate Blood Pressure O2 Sat by Pulse 97 98 98 Oximetry 08/24/20 08/24/20 08/24/20 16:30 16:35 16:40 Temperature Pulse Rate 114 H 116 H 119 H Respiratory Rate Blood Pressure O2 Sat by Pulse 99 99 100 Oximetry 08/24/20 08/24/20 08/24/20 16:45 16:50 16:55 Temperature Pulse Rate 115 H 124 H 121 H Respiratory Rate Blood Pressure O2 Sat by Pulse 99 100 100 Oximetry 08/24/20 08/24/20 08/24/20 17:00 17:05 17:10 Temperature Pulse Rate 116 H 116 H 109 H Respiratory Rate Blood Pressure O2 Sat by Pulse 99 100 99 Oximetry 08/24/20 08/24/20 08/24/20 17:15 17:20 17:25 Temperature Pulse Rate 113 H 116 H 114 H Respiratory Rate Blood Pressure O2 Sat by Pulse 99 99 99 Oximetry 08/24/20 08/24/20 08/24/20 17:30 17:35 17:40 Temperature Pulse Rate 114 H 110 H 113 H Respiratory Rate Blood Pressure O2 Sat by Pulse 99 99 98 Oximetry 08/24/20 08/24/20 08/24/20 17:45 17:50 17:55 Temperature Pulse Rate 108 H 107 H 108 H Respiratory Rate Blood Pressure O2 Sat by Pulse 99 100 99 Oximetry 08/24/20 08/24/20 08/24/20 18:00 18:05 18:10 Temperature Pulse Rate 110 H 119 H 109 H Respiratory Rate Blood Pressure O2 Sat by Pulse 99 99 100 Oximetry 08/24/20 08/24/20 08/24/20 18:15 18:20 18:25 Temperature Pulse Rate 106 H 106 H 109 H Respiratory Rate Blood Pressure O2 Sat by Pulse 99 99 98 Oximetry 08/24/20 08/24/20 08/24/20 18:30 18:35 18:40 Temperature Pulse Rate 103 H 111 H 107 H Respiratory Rate Blood Pressure O2 Sat by Pulse 99 100 99 Oximetry 08/24/20 08/24/20 08/24/20 18:45 18:50 18:55 Temperature Pulse Rate 116 H 114 H 106 H Respiratory Rate Blood Pressure O2 Sat by Pulse 100 100 100 Oximetry 08/24/20 08/24/20 08/24/20 19:00 19:05 19:10 Temperature Pulse Rate 109 H 106 H 98 H Respiratory Rate Blood Pressure O2 Sat by Pulse 99 98 100 Oximetry 08/24/20 08/24/20 08/24/20 19:11 19:15 19:20 Temperature Pulse Rate 104 H 94 H 104 H Respiratory Rate Blood Pressure 111/71 O2 Sat by Pulse 100 99 Oximetry 08/24/20 08/24/20 08/24/20 19:25 19:30 19:35 Temperature Pulse Rate 100 H 108 H 103 H Respiratory Rate Blood Pressure O2 Sat by Pulse 99 99 99 Oximetry 08/24/20 08/24/20 08/24/20 19:40 19:42 19:45 Temperature 98.2 F Pulse Rate 97 H 101 H Respiratory 20 Rate Blood Pressure O2 Sat by Pulse 99 98 99 Oximetry 08/24/20 08/24/20 08/24/20 19:50 19:55 20:00 Temperature Pulse Rate 105 H 95 H 119 H Respiratory Rate Blood Pressure O2 Sat by Pulse 99 100 100 Oximetry 08/24/20 08/24/20 08/24/20 20:05 20:07 20:10 Temperature Pulse Rate 112 H 119 H 112 H Respiratory Rate Blood Pressure O2 Sat by Pulse 100 92 99 Oximetry 08/24/20 08/24/20 08/24/20 20:15 20:16 20:19 Temperature Pulse Rate 115 H 108 H 101 H Respiratory Rate Blood Pressure 120/76 109/67 O2 Sat by Pulse 99 Oximetry 08/24/20 08/24/20 08/24/20 20:20 20:23 20:24 Temperature Pulse Rate 120 H 113 H 117 H Respiratory Rate Blood Pressure 111/71 185/125 100/62 O2 Sat by Pulse 100 Oximetry 08/24/20 08/24/20 08/24/20 20:25 20:29 20:30 Temperature Pulse Rate 112 H 120 H 116 H Respiratory Rate Blood Pressure 103/60 101/62 O2 Sat by Pulse 99 99 Oximetry 08/24/20 08/24/20 08/24/20 20:31 20:34 20:35 Temperature Pulse Rate 115 H 108 H 103 H Respiratory Rate Blood Pressure 104/69 104/70 O2 Sat by Pulse 99 Oximetry 08/24/20 08/24/20 08/24/20 20:37 20:40 20:41 Temperature Pulse Rate 109 H 114 H 117 H Respiratory Rate Blood Pressure 103/67 114/58 O2 Sat by Pulse 99 Oximetry 08/24/20 08/24/20 20:43 20:45 Temperature Pulse Rate 111 H 115 H Respiratory Rate Blood Pressure 115/63 O2 Sat by Pulse 99 Oximetry - Exam Cardiovascular: Regular rate Lungs: Normal air movement Abdomen: Present: normal appearance, soft Vulva: both: normal Uterus: Present: normal, fundal height above umbilicus FHR: category 1 Uterine Contraction Monitor Mode: External Cervical Dilatation: 7 (clear fluid) Cervical Effacement Percentage: 80 station: 0 Uterine Tone Measurement Phase: Contraction Uterine Contraction Intensity: Moderate Extremities: normal Deep Tendon Reflex Grade: Normal +2 - Labs Labs: Abnormal Labs 08/24/20 08/24/20 07:00 14:27 WBC 12.6 H RDW 13.0 L Seg Neutrophils % 76.2 H Seg Neutrophils # 9.6 H Urine Blood Small A Urine WBC (Auto) 39.0 H Laboratory Results - last 24 hr 08/24/20 08/24/20 08/24/20 07:00 14:27 14:27 WBC 12.6 H RBC 4.64 Hgb 12.9 Hct 38.5 MCV 83 MCH 28 MCHC 34 RDW 13.0 L Plt Count 143 Lymph % (Auto) 15.2 [place] % (Auto) 6.3 Eos % (Auto) 1.8 Baso % (Auto) 0.5 Lymph # (Auto) 1.9 [place] # (Auto) 0.8 Eos # (Auto) 0.2 Baso # (Auto) 0.1 Seg Neutrophils % 76.2 H Seg Neutrophils # 9.6 H Magnesium Urine Color Yellow Urine Turbidity Clear Urine pH 7.0 Ur Specific [place] 1.011 Urine Protein <15 mg/dl Urine Glucose (UA) Negative Urine Ketones Negative Urine Blood Small A Urine Nitrite Negative Urine Bilirubin Negative Urine Urobilinogen < 2.0 Ur Leukocyte Esterase Small Urine WBC (Auto) 39.0 H Urine RBC (Auto) 2.0 U Epithel Cells (Auto) 1.0 Urine Opiates Screen Urine Methadone Screen Ur Barbiturates Screen Ur Phencyclidine Scrn Ur Amphetamines Screen U Benzodiazepines Scrn Urine Cocaine Screen U Marijuana (THC) Screen Drugs of Abuse Note Syphilis IgG Antibody Coronavirus (PCR) Hep Bs Antigen Hepatitis C Antibody Nonreactive HIV 1&2 Antibody Rapid HIV P24 Antigen Rubella IgG Antibody Immune Blood Type Antibody Screen 08/24/20 08/24/20 08/24/20 14:27 14:27 14:27 WBC RBC Hgb Hct MCV MCH MCHC RDW Plt Count Lymph % (Auto) [place] % (Auto) Eos % (Auto) Baso % (Auto) Lymph # (Auto) [place] # (Auto) Eos # (Auto) Baso # (Auto) Seg Neutrophils % Seg Neutrophils # Magnesium Urine Color Urine Turbidity Urine pH Ur Specific [place] Urine Protein Urine Glucose (UA) Urine Ketones Urine Blood Urine Nitrite Urine Bilirubin Urine Urobilinogen Ur Leukocyte Esterase Urine WBC (Auto) Urine RBC (Auto) U Epithel Cells (Auto) Urine Opiates Screen Urine Methadone Screen Ur Barbiturates Screen Ur Phencyclidine Scrn Ur Amphetamines Screen U Benzodiazepines Scrn Urine Cocaine Screen U Marijuana (THC) Screen Drugs of Abuse Note Syphilis IgG Antibody Nonreactive Coronavirus (PCR) Hep Bs Antigen Non-reactive Hepatitis C Antibody HIV 1&2 Antibody Rapid Non react HIV P24 Antigen Non react Rubella IgG Antibody Blood Type Antibody Screen 08/24/20 08/24/20 08/24/20 14:27 14:40 Unknown WBC RBC Hgb Hct MCV MCH MCHC RDW Plt Count Lymph % (Auto) [place] % (Auto) Eos % (Auto) Baso % (Auto) Lymph # (Auto) [place] # (Auto) Eos # (Auto) Baso # (Auto) Seg Neutrophils % Seg Neutrophils # Magnesium 2.10 Urine Color Urine Turbidity Urine pH Ur Specific [place] Urine Protein Urine Glucose (UA) Urine Ketones Urine Blood Urine Nitrite Urine Bilirubin Urine Urobilinogen Ur Leukocyte Esterase Urine WBC (Auto) Urine RBC (Auto) U Epithel Cells (Auto) Urine Opiates Screen Urine Methadone Screen Ur Barbiturates Screen Ur Phencyclidine Scrn Ur Amphetamines Screen U Benzodiazepines Scrn Urine Cocaine Screen U Marijuana (THC) Screen Drugs of Abuse Note Syphilis IgG Antibody Coronavirus (PCR) Negative Hep Bs Antigen Hepatitis C Antibody HIV 1&2 Antibody Rapid HIV P24 Antigen Rubella IgG Antibody Blood Type B POSITIVE Antibody Screen Negative 08/24/20 Unknown WBC RBC Hgb Hct MCV MCH MCHC RDW Plt Count Lymph % (Auto) [place] % (Auto) Eos % (Auto) Baso % (Auto) Lymph # (Auto) [place] # (Auto) Eos # (Auto) Baso # (Auto) Seg Neutrophils % Seg Neutrophils # Magnesium Urine Color Urine Turbidity Urine pH Ur Specific [place] Urine Protein Urine Glucose (UA) Urine Ketones Urine Blood Urine Nitrite Urine Bilirubin Urine Urobilinogen Ur Leukocyte Esterase Urine WBC (Auto) Urine RBC (Auto) U Epithel Cells (Auto) Urine Opiates Screen Negative Urine Methadone Screen Negative Ur Barbiturates Screen Negative Ur Phencyclidine Scrn Negative Ur Amphetamines Screen Negative U Benzodiazepines Scrn Negative Urine Cocaine Screen Negative U Marijuana (THC) Screen Negative Drugs of Abuse Note Disclamer Syphilis IgG Antibody Coronavirus (PCR) Hep Bs Antigen Hepatitis C Antibody HIV 1&2 Antibody Rapid HIV P24 Antigen Rubella IgG Antibody Blood Type Antibody Screen
--- NOTE | 2020-08-24 20:57 | Anesthesia Consultation ---
Anesthesia Consult and Med Hx Date of service: 08/24/20 - Airway Anesthetic Teeth Evaluation: Poor ROM Head & Neck: Adequate Mental/Hyoid Distance: Adequate Mallampati Class: Class II Intubation Access Assessment: Probably Good - Pulmonary Exam CTA: Yes - Cardiac Exam Cardiac Exam: RRR - Pulmonary Hx Smoking: No Hx Asthma: Yes (last used inhaler 1 week ago) Hx Respiratory Symptoms: No SOB: No COPD: No Home Oxygen Therapy: No Hx Pneumonia: No Hx Sleep Apnea: No - Cardiovascular System Hx Hypertension: No Hx Coronary Artery Disease: No Hx Heart Attack/AMI: No Hx Angina: No Hx Percutaneous Transluminal Coronary Angioplasty (PTCA): No Hx Cardia Arrhythmia: No Hx Pacemaker: No Hx Internal Defibrillator: No Hx Valvular Heart Disease: No Hx Heart Murmur: No Hx Peripheral Vascular Disease: No - Central Nervous System Hx Neuromuscular Disorder: No Hx Seizures: No CVA: No Hx Back Pain: No Hx Psychiatric Problems: No - Gastrointestinal Hx Ulcer: No Hx Gastroesophageal Reflux Disease: Yes - Endocrine Hx Renal Disease: No Hx End Stage Renal Disease: No Hx Cirrhosis: No Hx Liver Disease: No Hx Insulin Dependent Diabetes: No Hx Non-Insulin Dependent Diabetes: No Hx Thyroid Disease: No Hx Hypothyroidism: No Hx Hyperthyroidism: No - Hematic Hx Anemia: No Hx Sickle Cell Disease: No - Other Systems Hx Alcohol Use: No Hx Substance Use: No Hx Cancer: No Hx Obesity: No
[2020-08-24] MEDS ORDERED: fentaNYL-BUPIV 2 MCG/ML-0.125% 200 MCG/100 ML BAG EPIDURAL SCH (21:00)
[2020-08-24] MEDS ORDERED: fentaNYL-BUPIV 2 MCG/ML-0.125% 200 MCG/100 ML BAG EPIDURAL ONE (21:03)
--- NOTE | 2020-08-24 21:19 | Progress Note ---
Labor Epidural - Labor Epidural Start Time: 20:08 Stop Time: 20:22 Performed by:: [facility] Procedure: Patient is requesting a laboring epidural for laboring pain. Patient IDed, H&P reviewed, all questions and concerns were answered, and consent was signed. Timeout was performed at bedside. Patient in sitting position. Sterile prep and drape was performed. [3] ml of 1% lidocaine skin wheal at L[3]- L [4]. 18- gauge Tuohy epidural needle was advanced to loss of resistance with saline technique 7cm. Negative CSF negative blood. Epidural catheter advanced to [10] centimeters. [NEGATIVE] Aspiration [NEGATIVE] test dose. Sterile dressing applied. Patient tolerated procedure.
[2020-08-24] MEDS ORDERED: MINERAL OIL 30 ML ORAL LIQD ONE (22:00)
[2020-08-24] MEDS ORDERED: OXYTOCIN DRIP 30 UNITS/500 ML BAG IV SCH (22:00)
--- NOTE | 2020-08-24 23:19 | Procedure Note ---
OB Delivery Note - Delivery Date of Delivery: 08/24/20 ( male baby boy) Procedure Analyst: ELVIRA CASILLAS Estimated blood loss: other (250) - Vaginal Delivery presentation: vertex Delivery position: OA (ROLA) Intrapartum events: labor-<37 weeks Delivery induction: none Delivery augmentation: pitocin Delivery monitor: external FHT, external uterine Route of delivery: Delivery placenta: spontaneous Delivery cord: 3 umbilical vessels Episiotomy: none Delivery laceration: none Anesthesia: epidural Delivery comments: Male born over intact perineum, 3 vessel cord clamped and cut, infant taken to warmer for assessment by NICU and [employer]. placenta delivered intact and complete, no lacerations to repair. EBL 250, apgars 8/9, wt 4#10oz. mother and baby stable, infant to NICU. al counts correct. - A at 1 minute: 8 at 5 minutes: 9 Gender: Male (4#10oz)
[2020-08-25] MEDS ORDERED: MAGNESIUM HYDROXIDE (MOM) ORAL LIQD UDC PO PRN (01:17)
[2020-08-25] MEDS ORDERED: BENZOCAINE/MENTHOL 20/0.5% TOP SPRAY 56 GM TP PRN (01:17)
[2020-08-25] MEDS ORDERED: PROMETHAZINE 25 MG TAB PO PRN (01:17)
[2020-08-25] MEDS ORDERED: WITCH HAZEL/ GLYCERIN PAD TP PRN (01:17)
[2020-08-25] MEDS ORDERED: OXYTOCIN DRIP 30 UNITS/500 ML BAG IV SCH (01:17)
[2020-08-25] MEDS ORDERED: diphenhydrAMINE 25 MG CAP PO PRN (01:17)
[2020-08-25] MEDS ORDERED: LANOLIN/ZINC/DIMETHICONE (LANSINOH) 7 GM TP PRN (01:17)
[2020-08-25] MEDS ORDERED: IBUPROFEN 600 MG TAB PO ONE ×2 (03:08→09:51)
[2020-08-25] MEDS ORDERED: SENNOSIDES/DOCUSATE SODIUM 8.6/50 MG TAB PO ONE (03:08)
--- NOTE | 2020-08-25 06:21 | Post Anesthesia Evaluation ---
- Post Anesthesia Evaluation Patient Participated: Yes Airway Patent: Yes Stable Respiratory Function: Yes Nausea/Vomiting: No Temp > 96.8F: Yes Pain Manageable: Yes Adequeate Hydration: Yes Anesthesia Complications: No Block Receding Appropriately: Yes Patient on Ventilator: No
[2020-08-25 11:24] LABS: Hematocrit 32.7 % (30.3-42.9)
--- NOTE | 2020-08-25 12:45 | Progress Note ---
Assessment and Plan Doing well no complaints. minimal bleeding. Will allow home tomorrow after case management evaluation complete. - Patient Problems (1) delivery, delivered Current Visit: Yes Status: Acute (2) Single live Current Visit: Yes Status: Acute (3) Mild intellectual disabilities Current Visit: Yes Status: Acute Plan to address problem: Will allow home tomorrow after Case management complete Subjective - Subjective Date of service: 08/25/20 Principal diagnosis: PPD#1 Patient reports: appetite normal, voiding normally, pain well controlled, flatus, ambulating normally Objective - Vital Signs Latest vital signs: Vital Signs Temp Pulse Resp BP Pulse Ox 08/25/20 07:54 97.5 F L 91 H 18 92/56 99 08/25/20 05:04 97.4 F L 95 H 20 93/57 99 08/25/20 00:18 92 H 100/59 08/25/20 00:15 94 H 99 08/25/20 00:10 85 99 08/25/20 00:05 91 H 99 08/25/20 00:03 89 89 08/25/20 00:00 84 100 08/24/20 23:55 88 98 08/24/20 23:50 91 H 99 08/24/20 23:47 97.5 F L 89 103/65 08/24/20 23:45 89 98 08/24/20 23:40 87 98 08/24/20 23:35 92 H 99 08/24/20 23:32 111 H 112/76 08/24/20 23:30 103 H 98 08/24/20 23:25 110 H 99 08/24/20 23:20 111 H 98 08/24/20 23:17 100 H 115/74 08/24/20 23:15 107 H 98 08/24/20 23:10 107 H 100 08/24/20 23:05 122 H 99 08/24/20 23:01 147 H 87 08/24/20 23:00 122 H 99 08/24/20 22:56 100 H 71 L 08/24/20 22:55 110 H 97 08/24/20 22:50 119 H 100 08/24/20 22:45 104 H 98 08/24/20 22:44 106 H 115/76 08/24/20 22:40 115 H 99 08/24/20 22:35 108 H 99 08/24/20 22:30 102 H 101/68 98 08/24/20 22:25 100 H 97 08/24/20 22:20 105 H 97 08/24/20 22:16 103 H 103/75 08/24/20 22:15 103 H 98 08/24/20 22:10 107 H 97 08/24/20 22:05 92 H 98 08/24/20 22:00 111 H 113/76 98 08/24/20 21:55 100 H 99 08/24/20 21:50 108 H 97 08/24/20 21:45 103 H 100/61 97 08/24/20 21:40 102 H 97 08/24/20 21:35 104 H 98 08/24/20 21:30 104 H 98 08/24/20 21:25 103 H 97 08/24/20 21:20 95 H 99 08/24/20 21:15 117 H 99/66 99 08/24/20 21:10 117 H 98 08/24/20 21:05 108 H 98 08/24/20 21:00 105 H 146/61 100 08/24/20 20:55 102 H 98 08/24/20 20:50 102 H 99 08/24/20 20:45 115 H 99 08/24/20 20:43 111 H 115/63 08/24/20 20:41 117 H 114/58 08/24/20 20:40 114 H 99 08/24/20 20:37 109 H 103/67 08/24/20 20:35 103 H 99 08/24/20 20:34 108 H 104/70 08/24/20 20:31 115 H 104/69 08/24/20 20:30 116 H 99 08/24/20 20:29 120 H 101/62 08/24/20 20:25 112 H 103/60 99 08/24/20 20:24 117 H 100/62 03 20:23 113 H 185/125 08/24/20 20:20 120 H 111/71 100 08/24/20 20:19 101 H 109/67 08/24/20 20:16 108 H 120/76 08/24/20 20:15 115 H 99 08/24/20 20:10 112 H 99 08/24/20 20:07 119 H 92 08/24/20 20:05 112 H 100 03/26/21 20:00 119 H 100 08/24/20 19:55 95 H 100 08/24/20 19:50 105 H 99 08/24/20 19:45 101 H 99 08/24/20 19:42 98.2 F 20 98 08/24/20 19:40 97 H 99 08/24/20 19:35 103 H 99 08/24/20 19:30 108 H 99 08/24/20 19:25 100 H 99 08/24/20 19:20 104 H 99 08/24/20 19:15 94 H 100 08/24/20 19:11 104 H 111/71 08/24/20 19:10 98 H 100 08/24/20 19:05 106 H 98 08/24/20 19:00 109 H 99 08/24/20 18:55 106 H 100 08/24/20 18:50 114 H 100 08/24/20 18:45 116 H 100 08/24/20 18:40 107 H 99 08/24/20 18:35 111 H 100 08/24/20 18:30 103 H 99 08/24/20 18:25 109 H 98 08/24/20 18:20 106 H 99 08/24/20 18:15 106 H 99 08/24/20 18:10 109 H 100 08/24/20 18:05 119 H 99 08/24/20 18:00 110 H 99 08/24/20 17:55 108 H 99 08/24/20 17:50 107 H 100 08/24/20 17:45 108 H 99 08/24/20 17:40 113 H 98 08/24/20 17:35 110 H 99 08/24/20 17:30 114 H 99 08/24/20 17:25 114 H 99 08/24/20 17:20 116 H 99 08/24/20 17:15 113 H 99 08/24/20 17:10 109 H 99 08/24/20 17:05 116 H 100 08/24/20 17:00 116 H 99 08/24/20 16:55 121 H 100 08/24/20 16:50 124 H 100 08/24/20 16:45 115 H 99 08/24/20 16:40 119 H 100 08/24/20 16:35 116 H 99 08/24/20 16:30 114 H 99 03 16:25 115 H 98 08/24/20 16:20 121 H 98 03 16:15 141 H 97 03 16:10 116 H 98 03 16:05 117 H 99 03 16:00 119 H 99 08/24/20 15:55 118 H 99 03 15:50 115 H 98 08/24/20 15:45 115 H 99 08/24/20 15:40 118 H 99 03 15:35 114 H 98 08/24/20 15:30 112 H 98 08/24/20 15:25 112 H 98 08/24/20 15:20 111 H 98 08/24/20 15:15 111 H 98 08/24/20 15:10 109 H 99 08/24/20 15:05 105 H 98 08/24/20 15:00 104 H 99 08/24/20 14:55 106 H 98 08/24/20 14:50 106 H 98 08/24/20 14:45 119 H 99 08/24/20 14:40 116 H 98 08/24/20 14:35 109 H 98 08/24/20 14:30 111 H 98 08/24/20 14:25 124 H 97 08/24/20 14:20 114 H 99 08/24/20 14:15 111 H 99 08/24/20 14:10 119 H 98 08/24/20 14:05 120 H 99 08/24/20 14:00 115 H 98 08/24/20 13:55 112 H 99 08/24/20 13:50 113 H 98 08/24/20 13:45 117 H 98 08/24/20 13:40 115 H 99 08/24/20 13:35 113 H 99 03 13:30 112 H 99 08/24/20 13:25 112 H 99 03 13:20 114 H 99 08/24/20 13:15 116 H 99 03 13:10 110 H 99 03 13:05 120 H 99 03 13:00 109 H 98 08/24/20 12:55 117 H 98 08/24/20 12:50 111 H 99 08/24/20 12:45 110 H 99 08/24/20 12:40 105 H 99 Intake and Output 08/24/20 08/25/20 08/25/20 22:59 06:59 14:59 Intake Total 1050 600 120 Output Total 1850 650 500 Balance -800 -50 -380 Intake: IV 1050 AMPICILLIN/NS 1 GM/50 ML 50 1 gm In 50 ml @ 100 mls/ hr IV Q4H G[facility] Rx#: [id number] Lactated Ringers 1,000 ml 1000 @ 125 mls/hr IV DIRECT GALE Rx#:[id number] Oral 600 120 Output: Urine 1850 650 500 Indwelling Catheter 1850 Void 650 500 Other: Total, Intake Amount 360 120 Total, Output Amount 100 350 500 # Voids Void 1 Estimated Blood Loss 250 - Exam Breasts: Present: normal. Absent: pain, engorged Lungs: Present: Normal air movement Abdomen: Present: normal appearance, soft. Absent: distention, tenderness, guarding Uterus: Present: fundal height below umbilicus. Absent: tenderness Extremities: Present: normal - Labs Labs: Abnormal lab results 08/24/20 Range/Units 14:27 WBC 12.6 H (4.5-11.0) K/mm3 RDW 13.0 L (13.2-15.2) % Seg Neutrophils % 76.2 H (40.0-70.0) % Seg Neutrophils # 9.6 H (1.8-7.7) K/mm3
[2020-08-25] MEDS: IBUPROFEN 600 MG TAB PO SCH ×2 (17:55→22:40)
[2020-08-25] MEDS: SENNOSIDES/DOCUSATE SODIUM 8.6/50 MG TAB PO SCH (22:41)
[2020-08-25] MEDS: FERROUS SULFATE 325 MG TAB PO SCH (22:41)
[2020-08-25] MEDS ORDERED: TETANUS,DIPH,PERTUSS(ACELL) VACCINE 0.5 ML SYRINGE IM ONE (23:13)
[2020-08-26] MEDS: IBUPROFEN 600 MG TAB PO SCH ×2 (04:39→11:40)
[2020-08-26] MEDS: SENNOSIDES/DOCUSATE SODIUM 8.6/50 MG TAB PO SCH (11:39)
[2020-08-26] MEDS: FERROUS SULFATE 325 MG TAB PO SCH (11:39)
--- NOTE | 2020-08-26 12:29 | Discharge Summary ---
Providers - Providers Date of Admission: 08/24/20 07:38 Date of discharge: 08/26/20 Attending physician: YE MCQUEEN 08/24/20 10:17 Consult to Case Management [CONS] Urgent Services Needed at Discharge: Pharmacy Laboratory Technician Notified:: n Additional Physician Instructions: pt has some intellectual disabilty, her mother is her legal guardian. pt is unknown to our practice and is being admitted for pre-term labor Primary care physician: YE MCQUEEN Hospitalization Reason for admission: active labor, IUP - Delivery: Episiotomy: none Laceration: none Other procedures: none complications: none Discharge diagnosis: IUP at term delivered baby: male Hospital course: unremarkable Condition at discharge: Good Disposition: DC-01 TO HOME OR SELFCARE - Discharge Diagnoses (1) delivery, delivered Status: Acute (2) Single live Status: Acute (3) Mild intellectual disabilities Status: Acute Plan - Provider Discharge Summary Activity: routine, no sex for 6 weeks, no heavy lifting 4 weeks, no strenuous exercise Diet: routine Instructions: routine Additional instructions: [] Smoking cessation referral if applicable(refer to patient education folder for contact #) [] Refer to [facility] Booklet Call your doctor immediately for: * Fever > 100.5 * Heavy vaginal bleeding ( >1 pad per hour) * Severe persistent headache * Shortness of breath * Reddened, hot, painful area to leg or breast * Drainage or odor from incision. * Keep incision clean and dry at all times and follow doctor's instructions regarding bathing/showering - Follow up plan Follow up: YE MCQUEEN MD [Primary Care Provider] - 7 Days Forms: [facility] Discharge Summary
[2020-08-26 16:28] VITALS: BP 95/62
== END 2020-08-26 16:20 | disposition home or self-care (01) | DRG 775 ==
LOC: TRG 06:41 → APU 06:48 → TRG 07:38 → APU 07:38 → LD 07:39 → OB 08-25 01:09
PROVIDERS: ADMIT Obstetrics & Gynecology; ATTEND Obstetrics & Gynecology
PROC: 10E0XZZ Delivery of Products of Conception, External Approach (ICD-10-PCS; principal; 2020-08-24)
PROC: 3E0R3BZ Introduction of Anesthetic Agent into Spinal Canal, Percutaneous Approach (ICD-10-PCS; 2020-08-24)
PROC: 00HU33Z Insertion of Infusion Device into Spinal Canal, Percutaneous Approach (ICD-10-PCS; 2020-08-24)
PROC: 3E0R3BZ Introduction of Anesthetic Agent into Spinal Canal, Percutaneous Approach (ICD-10-PCS; 2020-08-25)
DX: O99.344 Other mental disorders complicating childbirth (principal); O60.14X0 Preterm labor third trimester with preterm delivery third trimester, not applicable or unspecified; O99.52 Diseases of the respiratory system complicating childbirth; F70 Mild intellectual disabilities; Z20.822 Contact with and (suspected) exposure to COVID-19; K21.9 Gastro-esophageal reflux disease without esophagitis; Z3A.40 40 weeks gestation of pregnancy; Z37.0 Single live birth; Z23 Encounter for immunization
CPT/HCPCS: 36415; 80307; 81001; 83735; 85014; 85018; 85025; 86592; 86706; 86762; 86803; 86850; 86900; 86901; 87086; 87806; 88307; G0378; J0290; J0702; J2405; J3105; J3475; J7120; U0003

== ENCOUNTER 2021-12-02 13:27 | Emergency (ER) | payer MEDICAID ==
[2021-12-02] MEDS ORDERED: AMOXICILLIN/K CLAV 875/125MG TAB PO ONE (14:01)
[2021-12-02] MEDS ORDERED: ACETAMINOPHEN 325 MG TAB PO ONE (14:01)
--- NOTE | 2021-12-02 14:32 | Emergency Department Report ---
ED General Adult HPI - General Chief complaint: Chest Pain Stated complaint: CHEST PAIN Source: patient, EMS Mode of arrival: Stretcher Limitations: No Limitations - History of Present Illness Initial comments: Patient is a A1 21-year-old -[place] female who is approximately 19 weeks gestation presents to the ED with complaint of acute onset persistent intermittent right retro-orbital and temporal headache intermittently for the last 2 days. Patient states that the headache is intermittent and that when present she cannot open her eyes because of pain. Patient denies nausea and vomiting, diarrhea, dizziness, syncope, fall, traumatic injury, neck pain, fever, chills, cough, sore throat, nasal and sinus congestion or change in vision. MD Complaint: right frontal headache -: days(s) (2) Location: head, face Radiation: non-radiation Severity scale (0 -10): 6 Quality: aching, sharp Consistency: intermittent Improves with: none Worsens with: none Associated Symptoms: headaches. denies: denies other symptoms, confusion, chest pain, cough, diaphoresis, fever/chills, loss of appetite, malaise, nausea/vomiti ng, rash, seizure, shortness of breath, syncope, weakness Treatments Prior to Arrival: none - Related Data Home Medications Medication Instructions Recorded Confirmed Last Taken Multivitamin Tablet 1 tab PO DAILY 08/24/20 08/24/20 08/23/20 10:00 Previous Rx's Medication Instructions Recorded Last Taken Type Acetaminophen [Tylenol] 500 mg PO Q6HR PRN #30 tablet 12/02/21 Unknown Rx Amoxicillin [Trimox CAP] 500 mg PO Q8H #30 capsule 12/02/21 Unknown Rx Cetirizine HCl [Zyrtec 10mg tab] 10 mg PO DAILY #30 tab 12/02/21 Unknown Rx Allergies Allergy/AdvReac Type Severity Reaction Status Date / Time No Known Allergies Allergy Verified 03/24/18 13:35 ED Review of Systems ROS: Stated complaint: CHEST PAIN Other details as noted in HPI Constitutional: denies: chills, fever Eyes: eye pain, other (Right retro-orbital headache). denies: eye discharge, vision change ENT: denies: ear pain, throat pain Respiratory: denies: cough, shortness of breath, wheezing Cardiovascular: denies: chest pain, palpitations Endocrine: no symptoms reported Gastrointestinal: denies: abdominal pain, nausea, vomiting, diarrhea, constipation Genitourinary: denies: urgency, dysuria, discharge Musculoskeletal: denies: back pain, joint swelling, arthralgia Skin: denies: rash, lesions Neurological: headache. denies: weakness, paresthesias Psychiatric: denies: anxiety, depression Hematological/Lymphatic: denies: easy bleeding, easy bruising ED Past Medical Hx - Past Medical History Hx Hypertension: No Hx Heart Attack/AMI: No Hx Congestive Heart Failure: No Hx Diabetes: No Hx Deep Vein Thrombosis: No Hx Liver Disease: No Hx Renal Disease: No Hx Sickle Cell Disease: No Hx Seizures: No Hx Asthma: No Hx COPD: No Hx HIV: No Additional medical history: "learning disability" - Surgical History Hx Pacemaker: No Hx Internal Defibrillator: No - Social History Smoking Status: Never Smoker - Medications Home Medications: Home Medications Medication Instructions Recorded Confirmed Last Taken Type Multivitamin Tablet 1 tab PO DAILY 08/24/20 08/24/20 08/23/20 10:00 History Acetaminophen [Tylenol] 500 mg PO Q6HR PRN #30 tablet 12/02/21 Unknown Rx Amoxicillin [Trimox CAP] 500 mg PO Q8H #30 capsule 12/02/21 Unknown Rx Cetirizine HCl [Zyrtec 10mg tab] 10 mg PO DAILY #30 tab 12/02/21 Unknown Rx ED Physical Exam - General Limitations: No Limitations General appearance: alert, in no apparent distress - Head Head exam: Present: atraumatic, normocephalic, normal inspection - Eye Eye exam: Present: normal appearance, PERRL, EOMI, scleral icterus Pupils: Present: normal accommodation - ENT ENT exam: Present: mucous membranes moist, TM's normal bilaterally, normal external ear exam, other (Palpable right frontal sinus tenderness) - Neck Neck exam: Present: normal inspection, full ROM. Absent: tenderness, meningismus, lymphadenopathy, thyromegaly - Respiratory Respiratory exam: Present: normal lung sounds bilaterally. Absent: respiratory distress, wheezes, rhonchi, stridor, chest wall tenderness, accessory muscle use, prolonged expiratory - Cardiovascular Cardiovascular Exam: Present: regular rate, normal rhythm, normal heart sounds. Absent: systolic murmur, diastolic murmur, rubs, gallop - GI/Abdominal GI/Abdominal exam: Present: soft, normal bowel sounds. Absent: tenderness, hyperactive bowel sounds, hypoactive bowel sounds, organomegaly, mass - Extremities Exam Extremities exam: Present: normal inspection, full ROM, normal capillary refill - Back Exam Back exam: Present: normal inspection, full ROM. Absent: tenderness, CVA tenderness (R), CVA tenderness (L), muscle spasm, paraspinal tenderness, vertebral tenderness - Neurological Exam Neurological exam: Present: alert, oriented X3, CN II-XII intact, normal gait, reflexes normal - Psychiatric Psychiatric exam: Present: normal affect, normal mood, anxious - Skin Skin exam: Present: warm, dry, intact, normal color. Absent: rash ED Course Vital Signs 12/02/21 13:33 Temperature 98.0 F Pulse Rate 95 H Respiratory 16 Rate Blood Pressure 108/74 [Left] O2 Sat by Pulse 98 Oximetry ED Medical Decision Making - Medical Decision Making This is a A1 21-year-old -[place] female who is approximately 19 weeks gestation presents to the ED with complaint of acute onset persistent intermittent right retro-orbital and temporal headache intermittently for the last 2 days. Patient states that the headache is intermittent and that when present she cannot open her eyes because of pain. In the ED, patient is alert and oriented x3 and is not in any distress. The headache resolved in the ED. Patient was discharged home on medications and advised to follow-up with her ANTHROPOLOGIST physician or primary care physician in 7 to 10 days for reevaluation or return to the ED immediately if symptoms get worse. - Differential Diagnosis Tension headache; sinus headache; cluster headache; Critical care attestation.: If time is entered above; I have spent that time in minutes in the direct care of this critically ill patient, excluding procedure time. ED Disposition Clinical Impression: Sinus headache, Acute frontal sinusitis Disposition: 01 HOME / SELF CARE / HOMELESS Is pt being admited?: No Does the pt Need Aspirin: No Condition: Stable Instructions: Sinusitis, Adult, [id number], Sinus Headache, [id number] Additional Instructions: Your symptoms are likely due to a sinus headache due to frontal sinusitis. Th erefore take medications as advised, drink plenty of fluids and follow-up with your ANTHROPOLOGIST physician or primary care physician in 7 to 10 days for reevaluation or return to the ED immediately if symptoms get worse. Prescriptions: Acetaminophen [Tylenol] 500 mg PO Q6HR PRN #30 tablet PRN Reason: Pain , Severe (7-10) Amoxicillin [Trimox CAP] 500 mg PO Q8H #30 capsule Cetirizine HCl [Zyrtec 10mg tab] 10 mg PO DAILY #30 tab Referrals: [facility] [Provider Group] - 7-10 days Time of Disposition: 14:38 Print Language: BULGARIAN
[2021-12-02 15:34] VITALS: BP 104/70
== END 2021-12-02 16:03 | disposition home or self-care (01) ==
LOC: ED 13:27
DX: O26.892 Other specified pregnancy related conditions, second trimester (principal); Z3A.19 19 weeks gestation of pregnancy; G44.89 Other headache syndrome; J01.10 Acute frontal sinusitis, unspecified
CPT/HCPCS: 99283